=== PATIENT | female | born 1985 | race African-American/Black ===

== ENCOUNTER 2017-09-04 20:50 | Emergency (ER) | payer SELFPAY ==
--- NOTE | 2017-09-04 21:04 | EDM.PDOC ---
ED HPI GENERAL MEDICAL PROBLEM - General Chief Complaint: ENT Problem Stated Complaint: UNK Time Seen by Provider: 09/04/17 20:52 Source of Information: Reports: Patient History Limitations: Reports: No Limitations - History of Present Illness INITIAL COMMENTS - FREE TEXT/NARRATIVE: HISTORY AND PHYSICAL: History of present illness: 31-year-old female presenting the emergency department with chief complaint of increasing difficulty swallowing and throat pain 1 week. Patient is originally from [facility] and states she's been in the [place] for 14 years but has been going back and forth since then. States that for the past week she has had increasing difficulty with swallowing and sore throat. States that she has a history of oral fungal infections and has been taking fluconazole for this in the past. She also gets them on her nails. States she also has a history of parasites. She denies any difficulty with swallowing. She does have a history of heartburn and gastric ulcers. She currently takes no medications and denies any allergies. She currently denies any fever, nausea, vomiting, chest pain, palpitations, shortness breath, syncopal episodes, focal neurologic deficits, or airway issues. Patient denies any history of HIV. On exam there is creamy white/yellowish plaques adherent to the entire oral mucosa including tongue. Review of systems: As per history of present illness and below otherwise all systems reviewed and negative. Past medical history: As per history of present illness and as reviewed below otherwise noncontributory. Surgical history: As per history of present illness and as reviewed below otherwise noncontributory. Social history: No reported history of drug or alcohol abuse. Family history: As per history of present illness and as reviewed below otherwise noncontributory. Physical exam: HEENT: See above H&P Atraumatic, normocephalic, pupils reactive, negative for conjunctival pallor or scleral icterus, mucous membranes moist, neck supple, nontender, trachea midline. Lungs: Clear to auscultation, breath sounds equal bilaterally, chest nontender. Heart: S1S2, regular, negative for clicks, rubs, or JVD. Abdomen: Soft, nondistended, nontender. Negative for masses or hepatosplenomegaly. Negative for costovertebral tenderness. Pelvis: Stable nontender. Genitourinary: Deferred. Rectal: Deferred. Extremities: Atraumatic, negative for cords or calf pain. Neurovascular unremarkable. Neuro: Awake, alert, oriented. Cranial nerves II through XII unremarkable. Cerebellum unremarkable. Motor and sensory unremarkable throughout. Exam nonfocal. Diagnostics: [] Therapeutics: Fluconazole 400 mg by mouth daily 14 days Impression: Oral/esophageal candidiasis Dysphagia Plan: On exam patient has widespread white plaques consistent with candidiasis. His extremely severe and I am somewhat concerned that patient may be HIV positive. She has not seen a physician here in [place]. I did discharge her with medication fluconazole 400 mg by mouth daily 14 days and instructions to follow -up with her primary care physician here in [place]. He should further investigate her possible HIV status. He did give her information of the residency clinic and told her to call them early tomorrow to schedule an appointment. She instructed to return to emergency department if she had a new or worsening symptoms. Definitive disposition and diagnosis as appropriate pending reevaluation and review of above. throat Pain Score (Numeric/FACES): 9 - Related Data Allergies Allergy/AdvReac Type Severity Reaction Status Date / Time No Known Allergies Allergy Verified 09/04/17 21:03 Home Meds: Home Meds . [No Known Home Meds] 09/04/17 [History] ED ROS GENERAL - Review of Systems Review Of Systems: ROS reveals no pertinent complaints other than HPI. ED EXAM, GENERAL - Physical Exam Exam: See Below Course - Vital Signs Last Recorded V/S: Last Vital Signs Temp 97.6 F 09/04/17 20:50 Pulse 99 09/04/17 20:50 Resp 18 09/04/17 20:50 BP 131/87 09/04/17 20:50 Pulse Ox 98 09/04/17 20:50 Departure - Departure Time of Disposition: 21:27 Disposition: Home, Self-Care 01 Condition: Good Clinical Impression: Oral pharyngeal candidiasis, Pharyngeal candidiasis Dysphagia Qualifiers: Dysphagia type: oropharyngeal phase Qualified Code(s): R13.12 - Dysphagia, oropharyngeal phase - Discharge Information Referrals: PCP,None [Primary Care Provider] - Forms: ED Department Discharge Additional Instructions: My general discharge The following information is given to patients seen in the emergency department who are being discharged to home. This information is to outline your options for follow-up care. We provide all patients seen in our emergency department with a follow-up referral. The need for follow-up, as well as the timing and circumstances, are variable depending upon the specifics of your emergency department visit. If you don't have a primary care physician on staff, we will provide you with a referral. We always advise you to contact your personal physician following an emergency department visit to inform them of the circumstance of the visit and for follow-up with them and/or the need for any referrals to a consulting specialist. The emergency department will also refer you to a specialist when appropriate. This referral assures that you have the opportunity for follow-up care with a specialist. All of these measure are taken in an effort to provide you with optimal care, which includes your follow-up. Under all circumstances we always encourage you to contact your private physician who remains a resource for coordinating your care. When calling for follow-up care, please make the office aware that this follow-up is from your recent emergency room visit. If for any reason you are refused follow-up, please contact the [facility] Emergency Department at and asked to speak to the emergency department charge nurse. [facility] [address] [place] [address] [id number] [address] [id number] Please call schedule appointment with a primary care physician as we discussed. Take medications as prescribed. Return emergency department if any new or worsening symptoms.
== END 2017-09-04 21:35 | disposition home or self-care (01) ==
LOC: MW.ED 20:50
DX: B37.0 Candidal stomatitis (principal)
CPT/HCPCS: 99283